=== PATIENT | male | born 2000 | race Caucasian/White ===

== ENCOUNTER 2022-01-18 21:48 | Emergency (ER) | payer SELFPAY ==
[~2022-01-18] VITALS: Ht 182.9 cm; Wt 86.4 kg
[2022-01-18 22:31] VITALS: BP 144/75; PULSE 78; TEMP 98.4
== END 2022-01-18 22:31 | disposition home or self-care (01) ==
LOC: COL.ER 21:48
DX: S61.211A Laceration without foreign body of left index finger without damage to nail, initial encounter (principal); Z28.311 Partially vaccinated for COVID-19; W26.0XXA Contact with knife, initial encounter; Y92.59 Other trade areas as the place of occurrence of the external cause; Y99.0 Civilian activity done for income or pay